=== PATIENT | male | born 1955 | race African-American/Black ===

== ENCOUNTER 2024-08-24 03:09 | Emergency (ER) | payer BC, MEDICAID ==
[~2024-08-24] VITALS: Ht 167.6 cm; Wt 78.0 kg
[2024-08-24 03:20] VITALS: O2SAT 99
[2024-08-24] MEDS ORDERED: AMOX1TAB16 MT (04:01)
[2024-08-24 04:24] VITALS: BP 115/76; PULSE 80; RESP 20; TEMP 36.7; O2SAT 97
== END 2024-08-24 04:25 | disposition home or self-care (01) ==
LOC: ER 03:44
DX: J01.90 Acute sinusitis, unspecified (principal); Z85.51 Personal history of malignant neoplasm of bladder
CPT/HCPCS: 99283